=== PATIENT | female | born 1945 | race Caucasian/White ===

== ENCOUNTER 2022-12-24 08:17 | Outpatient (REF) | payer MEDICARE, SELFPAY ==
[2022-12-24 11:35] LABS: MANUAL DIFF FLAG NO
[2022-12-24 11:53] LABS: Basophils Percent Auto 0.5 % (0-2); Eosinophils Absolute Auto 0.1 X10*3/uL (0.0-0.4); Eosinophils Percent Auto 1.9 % (0-4); Hematocrit 39.6 % (37.0-47.0); Hemoglobin 13.3 g/dl (12.0-16.0); Imm Gran Abs Auto 0.01 X10*3/uL (0.00-0.03); Imm Gran Pct Auto 0.2 % (0.0-0.4); Lymphocytes Absolute Auto 1.9 X10*3/uL (1.2-4.9); Lymphocytes Percent Auto 29.2 % (20-40); Mean Corpuscular HGB Conc 33.6 g/dl (31.0-35.0); Mean Corpuscular Volume 98.3 fL (80.0-98.0); Mean Platelet Volume 10.2 fL (9.4-12.3); Monocytes Absolute Auto 0.6 X10*3/uL (0.1-1.2); Monocytes Percent Auto 9.1 % (2-11); Neutrophils Absolute Auto 3.8 x10*3/uL (2.0-8.3); Neutrophils Percent Auto 59.1 % (45-73); Platelet Count 268 X10*3/uL (160-400); Red Blood Count 4.03 X10*6/uL (4.20-5.50); Red Cell Distribution Width 13.3 % (11.0-16.0); White Blood Count 6.3 X10*3/uL (4.8-10.8)
[2022-12-24 12:52] LABS: Alanine Aminotransferase 17 U/L (0-31); Albumin Level 4.1 g/dL (3.5-5.0); Alkaline Phosphatase 71 U/L (39-117); Anion Gap 14 (12-20); Aspartate Amino Transferase 21 U/L (5-31); Bilirubin Total 0.6 mg/dL (0.0-1.0); Blood Urea Nitrogen 14 mg/dL (9-16); Calcium 9.6 mg/dL (8.4-10.2); Carbon Dioxide 27 mmol/L (22-29); Chloride 105 mmol/L (96-108); Cholesterol 214 mg/dL; Estimated Glomerular Filt Rate > 60; Glucose Random 100 mg/dL (60-115); HDL Cholesterol 62 mg/dL; LDL Cholesterol Calculated 120 mg/dl; Potassium 4.4 mmol/L (3.3-5.1); Sodium 142 mmol/L (135-145); Total Protein 6.8 g/dL (6.5-8.0); Triglycerides 164 mg/dL
[2022-12-24 13:03] LABS: Folate > 20.0 ng/mL (> or = 4.0); Vitamin B12 467 pg/mL (200-900)
== END 2022-12-24 08:18 | disposition home or self-care (01) ==
LOC: HO.MANLDS 08:17
PROVIDERS: Visit Provider Internal Medicine
DX: I10 Essential (primary) hypertension (principal); C44.91 Basal cell carcinoma of skin, unspecified
CPT/HCPCS: 36415; 80053; 80061; 82306; 82607; 82746; 85025

== ENCOUNTER 2024-08-08 10:00 | Outpatient (REF) | payer MEDICARE, SELFPAY ==
[2024-08-08 10:05] LABS: MANUAL DIFF FLAG NO
[2024-08-08 12:42] LABS: Basophils Percent Auto 0.5 % (0-2); Eosinophils Absolute Auto 0.1 X10*3/uL (0.0-0.4); Eosinophils Percent Auto 2.3 % (0-4); Hematocrit 37.1 % (37.0-47.0); Hemoglobin 12.8 g/dl (12.0-16.0); Imm Gran Abs Auto 0.02 X10*3/uL (0.00-0.03); Imm Gran Pct Auto 0.4 % (0.0-0.4); Lymphocytes Absolute Auto 2.1 X10*3/uL (1.2-4.9); Lymphocytes Percent Auto 36.2 % (20-40); Mean Corpuscular HGB Conc 34.5 g/dl (31.0-35.0); Mean Corpuscular Hemoglobin 34.6 pg (27.0-33.0); Mean Corpuscular Volume 100.3 fL (80.0-98.0); Mean Platelet Volume 10.2 fL (9.4-12.3); Monocytes Absolute Auto 0.6 X10*3/uL (0.1-1.2); Monocytes Percent Auto 9.9 % (2-11); Neutrophils Absolute Auto 2.9 x10*3/uL (2.0-8.3); Neutrophils Percent Auto 50.7 % (45-73); Platelet Count 232 X10*3/uL (160-400); Red Cell Distribution Width 13.5 % (11.0-16.0); White Blood Count 5.7 X10*3/uL (4.8-10.8)
[2024-08-08 12:57] LABS: Alanine Aminotransferase 20 U/L (0-31); Albumin Level 4.1 g/dL (3.5-5.0); Alkaline Phosphatase 65 U/L (39-117); Anion Gap 11 (12-20); Aspartate Amino Transferase 19 U/L (5-31); Bilirubin Total 0.5 mg/dL (0.0-1.0); Blood Urea Nitrogen 17 mg/dL (9-16); Calcium 9.7 mg/dL (8.4-10.2); Carbon Dioxide 31 mmol/L (22-29); Chloride 105 mmol/L (96-108); Cholesterol 207 mg/dL (<200); Estimated Glomerular Filt Rate > 60; Glucose Random 97 mg/dL (60-115); HDL Cholesterol 60 mg/dL (>40); LDL Cholesterol Calculated 117 mg/dL (<100); Potassium 4.1 mmol/L (3.3-5.1); Sodium 143 mmol/L (135-145); Total Protein 6.8 g/dL (6.5-8.0); Triglycerides 152 mg/dL (<150)
== END 2024-08-08 10:01 | disposition home or self-care (01) ==
LOC: HO.MANLDS 10:00
PROVIDERS: Visit Provider Internal Medicine
DX: I10 Essential (primary) hypertension (principal); E78.00 Pure hypercholesterolemia, unspecified
CPT/HCPCS: 36415; 80053; 80061; 85025

== ENCOUNTER 2025-06-05 11:09 | Outpatient (REF) | payer MEDICARE, SELFPAY ==
--- OUTSIDE RECORDS SUMMARY | 2025-06-05 12:10 | XMS_ITS | Encounter Summary ---
Author Organization [facility] Address [address] [place] [address] Phone Care Team Providers Care Block Inspector Name Role Phone Reta Joiner MD Primary Care Provider + Rafita Garcia DO Primary Care Provider [phone] Rafita Garcia DO Primary Care Provider [phone] Encounter Details Date Type Department Care Team (Latest Contact Info) Description 04/27/2023 Transcribe Orders Virtual Department [address] [place] [address] Vida Piper PA [address] [place] [address] [place] [address] Unspecified fall, initial encounter (Primary Dx) Social History Tobacco Use Types Packs/Day Years Used Date Smoking Tobacco: Former Cigarettes 0.3 2 Smokeless Tobacco: Never Education Answer Date Recorded Are you interested in more education? Not on jakbu e 03/11/2023 Are you concerned about learning? Not on file 03/11/2023 No 03/11/2023 No 03/11/2023 Digital Access Answer Date Recorded No 04/09/2023 No 04/09/2023 No 04/09/2023 Reliable internet access at home? Not on file 04/09/2023 Device with a working camera? Not on file Comments Unknown Sex and Gender Information Value Date Recorded Sex Assigned at Not on file Legal Sex Female 10:09 PM EDT Gender Identity Not on file Sexual Orientation Not on file documented as of this encounter Plan of Treatment Not on file documented as of this encounter Visit Diagnoses Diagnosis Unspecified fall, initial encounter- Primary documented in this encounter Care Teams Block Inspector Relationship Specialty Start Date End Date Reta Joiner MD [address] [place] [address] PCP - General Pediatrics 02/11/21 08/29/23 Rafita Garcia DO [address] [place] [address] PCP - General Internal Medicine 08/30/23 03/18/25 Rafita Garcia DO [address] [place] [address] PCP - General Internal Medicine 03/19/25 documented as of this encounter Additional Source Comments The information contained in this document represents components of the legal health record. It is not the complete legal health record.[facility]
--- OUTSIDE RECORDS SUMMARY | 2025-06-05 12:11 | XMS_ITS | Patient Health Record ---
Author Organization [facility] Address [address] [place] [address] Support Name Relationship Address Phone ADE VALENTE Guarantor Unknown Reason For Referral No Information Medications Medication SIG (Take, Route, Frequency, Duration) Notes Start Date End Date Status Vagifem 10 MCG 1 VAGINAL TWICE A WE EK; Duration: -3 Jerad- 06/26/2012 Active Lisinopril 20MG 1 ORAL twice daily; Duration: -3 Jerad- 06/26/2012 Active Triamterene-HCTZ 37.5/25MG 1 ORAL daily; Duration: -3 Jerad- 06/26/2012 Active Aspirin EC 81MG 1 ORAL daily; Durati on: -3 Jerad- 06/26/2012 Active Crestor 20MG 1 ORAL daily; Durati on: -3 Jerad-MJ 06/26/2012 Active Problems Problem Type SNOMED Code ICD Code Onset Dates Problem Status W/U Status Risk Notes Problem Hyperlipidemia (94301536) Other and unspecified hyperlipidemia (272.4) Active confirmed Major Problem Benign essential hypertension (5088751) Essential hypertension, benign (401.1) Active confirmed Major Problem Menopausal symptom (28233408) Symptomatic menopausal or female climacteric states (627.2) Active confirmed Major Problem Postmenopausal atrophic vaginitis (75812997) Postmenopausal atrophic vaginitis (627.3) Active confirmed Diag Problem Gynecological examination normal (723126965381396) Routine gynecological examination (V72.31) Active confirmed Major Problem Screening for malignant neoplasm of colon (811090711) Special screening for malignant neoplasms, colon (V76.51) Active confirmed Major Plan Of Treatment No Information Insurance Providers Payer Name Payer Address Payer Phone Subscriber Number Group Number Insured Name Patient Relationship to Insured Coverage Start Date Coverage End Date [employer] MEDICARE ADVANTAGE [facility] [address] [place] [address] [id number] ADE VALENTE Self - patient is the insured
--- OUTSIDE RECORDS SUMMARY | 2025-06-05 12:11 | XMS_ITS ---
Author Name [facility] Organization Unknown Care Team Organization Name Specialty Phone Email Start Date End Da te [facility] Termed, PROVIDER Primary Care 09/21/202206/14
--- OUTSIDE RECORDS SUMMARY | 2025-06-05 12:11 | XMS_ITS | Data Portability ---
Author Organization [facility], [employer], [facility] Address [address] [place] [address] Care Team Providers Care Atm Manager Name Role Phone CHRYSTAL URBINA Referring Provider Assessment No assessment recorded. Plan of Treatment Reminders Order Date Submit Date Provider Last Modified By Organization Details Last Modified Time Details Appointments None recorded. Lab SARS CoV 2 RNA (COVID-19), QL, chair caner-PCR, respiratory specimen [address] [facility], [address] [place] [address] [place], [address], 09:40:09 Referral None recorded. Procedures None recorded. Surgeries None recorded. Imaging None recorded. Medication Orders None recorded. Patient TargetsNo targets recorded. Patient InstructionsNo instructions recorded. Reason for Referral None Reported. Results Created Date Observation Date Name Description Value Unit Range Abnormal Flag Note LastModifiedBy Organization Detail LastModifiedTime 07/17/2007/17/2021 CORON AVIRU S (COVI D-19) , SCHEDULING SPECIALIST-P CR cov2 Negati ve negati ve Posit magui resul t indic ates the detec tion of nucle ic acid from the relev ant virus which may persi st even after the virus is no longe r viabl e. Negat magui resul ts do not precl ude SARS- Cov-2 infec tions and shoul d not be used as the sole basis for treat ment or other manag ement decis ion. The Panth er Fusio n SARS- CoV-2 Assay is only for use under the FDA's Emerg ency Use Autho rizat ion. Not Available [facility] [address], [place], [address], 07/18/2021 09:40:09 Result Notes None recorded. Procedures Surgical History Date Name Laterality Status Provider Name and Address Organization Details Recorded Time Date of Last Mammogram completed [facility] 07/17/2021 10:49:34 Mammogram Screening completed [facility], [facility] 07/17/2021 10:49:49 section completed [facility], [facility] 07/17/2021 10:49:49 Colonoscopy completed [facility], [facility] 07/17/2021 10:49:49 Tubal ligation completed [facility] 07/17/2021 10:49:49 Imaging Results None recorded. Procedure Notes None recorded. Medical Equipment None Reported. Allergies No known drug allergies Vitals Date Recorded Body weight Body mass index (BMI) Body height Body temperature Heart rate Oxygen saturation Oxygen saturation in Arterial blood by Pulse oximetry Systolic And Diastolic Provider Name and Address Organization Details Last Updated DateTime 1 09698.9 3 g 26.5 kg/m2 154.94 cm 98 [degF] 74 /min 97 % 97 % 143/82 mm[Hg] [facility] 10:49:13 Social History Question Answer Notes LastModified by Organizat ion Details LastModified Time Tobacco Smoking Status [facility]oker [facility] 07/17/2021 10:49:44 Do You Have An Advance Directive? No Information not available 07/17/2021 What Is Your Level Of Caffeine Consumption? Moderate Information not available 07/17/2021 What Type Of Diet Are You Following? REGULAR Information not available 07/17/2021 What Is The Highest Grade Or Level Of School You Have Completed Or The Highest Degree You Have Received? [id number] Information not available 07/17/2021 What Is Your Relationship Status? Information not available 07/17/2021 Are You Sexually Active? Yes Information not available 07/17/2021 Sex: Unknown Functional Status Question Answer Note LastModified by Organizat ion Details LastModified Time What is your level of alcohol consumption? Moderate Information not available 07/17/2021 Do you or have you ever used smokeless tobacco? Never used smokeless tobacco Information not available 07/17/2021 What is your exercise level? Moderate Information not available 07/17/2021 Mental Status None recorded. Family History Relationship Description Onset Age of this Age Resolved Age Notes LastModified by Organization Details LastModified Time Unspecified Relation Actinic keratosis Not available 2020 10:49:27 Unspecified Relation Squamous cell carcinoma Not available 2020 10:49:27 Unspecified Relation [facility]pertensive [email or web address] Not available 2020 10:49:27 Unspecified Relation Basal cell carcinoma of skin Not available 2020 10:49:27 Medical History Condition Response Cancer (location) Y High blood pressure Y Gynecological History Statement/Question Response Menses Monthly N STIs/STDs N If Post Menopausal, Age at Menopause 57 Date of Last Mammogram 03/24/2021 Age at First Child 20 Obstetrics History GPAL:G 0 P 0 0 0 0 Past Encounters Encounter ID Performer Location Encounter Start Date Encounter Closed Date Diagnosis/Indication Diagnosis SNOMED-CT Code Diagnosis ICD10 Code Diagnosis Note [id number] Chrystal Urbina MD [facility] [address] [place] [phone] 2 07/17/2021 09:10:01 07/17/2021 12:08:46 Suspected COVID-19 756484453 Z03.89 she has minimal symptoms and has been vaccinated Cellulitis of face 2001 L03.211 no need for treatment at this pointConsi emerson cephalexin and topical steroids if her symptoms persist Health Concerns Section Related Observation LastModified by Organization Detai ls LastModified Time None Recorded Concern Status LastModified by Organization Details LastModified Time None Recorded Advance Directives Directive N: Payers Insurance Date Sequence Insurance Name Policy Number Policy Worthy Covered Member ID Worthy Member ID Guarantor Name 04/11/2022 1 [facility] - MEDICARE ADVANTAGE PLAN (MEDICARE REPLACEMENT HMO) [id number] Yulissa Savage [id number] Yulissa Savage 07/17/2021 1 [place] Yulissa Savage [id number] Yulissa Savage 07/17/2021 1 [facility] [id number] Yulissa Savage [id number] Yulissa Savage Notes Date Note Type Note Provider Name and Address Organization Details Recorded Time text/html Acute HPIReported bypatient.Notes:she is complaining of itchiness and the lesions behind both her ears where glasses sitit is tolerableCough / ColdReported bypatient.Reason for visit:acute complaint Quality:dry / nonproductive Severity:moderate Duration:constant Onset/Timing:abrupt;1 days ago Context:usual activity Associated Symptoms:congestionNotes :she has been vaccinatedShe is spending a [facility] is symptomatic CORONAVIRUS SCREENING TOOL Are you experiencing any NEW symptom(s) listed below that is not due to another health problem Cough, shortness of breath or difficulty breathing Is anyone else in your household experiencing any NEW symptoms Yes In the past 2 weeks did you have close contact (within 6 feet for at least 15 minutes) with someone with symptoms of COVID-19 or who tested positive for COVID-19 No In the past 2 weeks have you been tested for COVID-19 No, I have not been tested Why did you get tested? Please select all that apply N/A In the past 2 weeks has someone in your household tested positive for COVID-19 No Have you ever received a dose of COVID-19 vaccine? Yes Which vaccine product did you receive? Pfizer How many doses have you received? 2 doses Imported from [facility] on 07/17/2021 QUALITY MEASURE QUESTIONNAIRE Has the Patient had a fracture in the last year No Has the Patient had a bone density testing performed before Yes Has the Patient been diagnosed as having osteoporosis No Imported from [facility] on 07/17/2021 Chrystal Urbina MD [address] [facility] [address], [place], [address], [facility] - [facility], [facility] 07/17/2021 11:24:16 OBGyn Episode No OBEpisode recorded.
== END 2025-06-05 11:10 | disposition home or self-care (01) ==
LOC: HO.MANLDS 11:09
PROVIDERS: Visit Provider Physician Assistant
DX: Z13.89 Encounter for screening for other disorder (principal)

== ENCOUNTER 2025-06-12 13:44 | Outpatient (REF) | payer MEDICARE, SELFPAY ==
--- OUTSIDE RECORDS SUMMARY | 2025-06-12 14:23 | XMS_ITS | Patient Health Record ---
Author Organization [facility] Address [address] [place] [address] Support Name Relationship Address Phone ADE VALENTE [...] Status W/U Status Risk Notes Problem Hyperlipidemia (36649737) Other and unspecified hyperlipidemia (272.4) Active confirmed Major Problem Benign essential hypertension (3520666) Essential hypertension, benign (401.1) Active confirmed Major Problem Menopausal symptom (52679590) Symptomatic menopausal or female climacteric states (627.2) Active confirmed Major Problem Postmenopausal atrophic vaginitis (25028657) Postmenopausal atrophic vaginitis (627.3) Active confirmed Diag Problem Gynecological examination normal (420378820518256) Routine gynecological examination (V72.31) Active confirmed Major Problem Screening for malignant neoplasm of colon (386253723) Special screening for malignant neoplasms, colon (V76.51) Active confirmed Major Plan Of Treatment No Information Insurance Providers Payer Name Payer Address Payer Phone Subscriber Number Group Number Insured Name Patient Relationship to Insured Coverage Start Date Coverage End Date [employer] MEDICARE ADVANTAGE [facility] [address] [place] [address] [id number] ADE VALENTE Self - patient is the insured
--- OUTSIDE RECORDS SUMMARY | 2025-06-12 14:23 | XMS_ITS | Encounter Summary ---
Author Organization [facility] Address [address] [place] [address] Phone Care Team Providers Care Newspaper Manager Name Role Phone Reta Joiner MD Primary Care Provider + Rafita Garcia DO Primary Care Provider [phone] Rafita Garcia DO Primary Care Provider [phone] Encounter Details Date Type Department Care Team (Latest Contact Info) Description 04/27/2023 Transcribe Orders Virtual Department [address] [place] [address] Vida Piper PA [address] [place] [address] [place] [address] Unspecified fall, initial encounter (Primary Dx) Social History Tobacco Use Types Packs/Day Years Used Date Smoking Tobacco: Former Cigarettes 0.3 2 Smokeless Tobacco: Never Education Answer Date Recorded Are you interested in more education? Not on jakub e 03/11/2023 Are you concerned about learning? [...] Primary documented in this encounter Care Teams Newspaper Manager Relationship Specialty Start Date End Date Reta Joiner MD [address] [place] [address] PCP - General Pediatrics 02/11/21 08/29/23 Rafita Garcia DO [address] [place] [address] PCP - General Internal Medicine 08/30/23 03/18/25 Rafita Garcia DO [address] [place] [address] PCP - General Internal Medicine 03/19/25 documented as of this encounter Additional Source Comments The information contained in this document represents components of the legal health record. It is not the complete legal health record.[facility]
[2025-06-12 15:10] LABS: INTERNATIONAL NORM RATIO 0.9 (0.9-1.1); Prothrombin Time 10.7 SEC (10.9-12.4)
[2025-06-12 15:13] LABS: Partial Thromboplastin Time 29.3 SEC (26.7-34.1)
[2025-06-12 15:14] LABS: Hematocrit 35.4 % (37.0-47.0); Hemoglobin 12.4 g/dl (12.0-16.0); Imm Gran Abs Auto 0.02 X10*3/uL (0.00-0.03); Imm Gran Pct Auto 0.3 % (0.0-0.4); Lymphocytes Absolute Auto 2.3 X10*3/uL (1.2-4.9); MANUAL DIFF FLAG SCAN; Mean Corpuscular HGB Conc 35.0 g/dl (31.0-35.0); Mean Corpuscular Hemoglobin 34.2 pg (27.0-33.0); Mean Corpuscular Volume 97.5 fL (80.0-98.0); NRBC Abs Auto 0.000 X10*3/uL (0.0-0.012); NRBC Pct Auto 0.0 /100WBC (0.0-0.2); PLT CLUMP 1; Red Blood Count 3.63 X10*6/uL (4.20-5.50); SCAN SMEAR FLAG 1
[2025-06-12 15:19] LABS: Iron 86 mcg/dL (30-160); Percent Iron Saturation 28 % (15-50); Total Iron Binding Capacity 306 mcg/dL (228-428); Unsaturated Iron Binding 220 ug/dL
[2025-06-12 15:35] LABS: Ferritin 32 ng/mL (10-250); Free T4 (Free Thyroxine) 1.06 ng/dL (0.71-1.85); Thyroid Stimulating Hormone 0.64 uIU/mL (0.32-4.0)
[2025-06-12 15:38] LABS: Platelet Count 232 X10*3/uL (160-400); White Blood Count 7.0 X10*3/uL (4.8-10.8)
[2025-06-12 15:53] LABS: Folate > 20.0 ng/mL (> or = 4.0); Vitamin B12 455 pg/mL (200-900)
[2025-06-15 23:04] LABS: Protein S Activity rflx Tot&Fr 101 % normal (60-140)
[2025-06-16 17:13] LABS: Vitamin D 25-OH, D2 <4 ng/mL; Vitamin D 25-OH, D3 63 ng/mL; Vitamin D 25-OH, Total 63 ng/mL (30-100)
[2025-06-18 11:53] LABS: Mixing Study - PT 11.3 sec (9.0-11.5); PTT LA 39 sec (< OR = 40)
== END 2025-06-12 13:45 | disposition home or self-care (01) ==
LOC: HO.MANLDS 13:44
PROVIDERS: Visit Provider Physician Assistant
DX: D69.2 Other nonthrombocytopenic purpura (principal)
CPT/HCPCS: 36415; 82306; 82607; 82728; 82746; 83540; 84439; 84443; 85025; 85302; 85303; 85306; 85610; 85611; 85652; 85730; 85732; 86140

== ENCOUNTER 2025-06-12 14:34 | Outpatient (REF) | payer MEDICARE, SELFPAY | END 2025-06-12 14:35 | disposition home or self-care (01) | LOC: HO.LAB 14:34 | PROVIDERS: PCP Internal Medicine; Visit Provider Physician Assistant | DX: Z13.89 Encounter for screening for other disorder (principal) ==